=== PATIENT | female | born 1975 | race Caucasian/White ===

== ENCOUNTER 2016-10-29 21:25 | Emergency (ER) | payer SELFPAY ==
[2016-10-29] MEDS ORDERED: Sodium Chloride 0.9% 1,000 ML IV ONE (22:17)
[2016-10-29] MEDS ORDERED: Sodium Chloride 0.9% 1,000 ML ONE (22:22)
[2016-10-29 22:39] LABS: BASO % 0.4 % (0.0-2.0); EOS # 0.1 K/uL (0.0-0.7); EOS % 1.6 % (0.0-4.0); HEMATOCRIT 36.7 % (34.0-47.0); LYMPH # 2.5 K/uL (1.0-4.3); LYMPH % 38.3 % (20.0-40.0); MEAN CELL VOLUME 88.5 fL (81.0-99.0); MEAN CORPUSCULAR HEMOGLOBIN 29.5 pg (27.0-31.0); MEAN CORPUSCULAR HGB CONC 33.3 g/dL (33.0-37.0); MEAN PLATELET VOLUME 8.7 fL (7.2-11.7); MONO # 0.6 K/uL (0.0-0.8); MONO % 9.9 % (0.0-10.0); RED CELL DISTRIBUTION WIDTH 13.3 % (11.5-14.5); WHITE BLOOD COUNT 6.4 K/uL (4.8-10.8)
[2016-10-29 22:49] LABS: CHLORIDE 101 mmol/L (98-107)
[2016-10-29 22:50] LABS: POTASSIUM 3.5 mmol/L (3.6-5.2); SODIUM 137 mmol/L (132-148)
[2016-10-29 22:52] LABS: ALB/GLOB RATIO 1.3 (1.0-2.1); ALKALINE PHOSPHATASE 102 U/L (38-126); ALT/SGPT 30 U/L (9-52); AST/SGOT 23 U/L (14-36); BILIRUBIN,TOTAL 0.4 mg/dL (0.2-1.3); BLOOD UREA NITROGEN 8 mg/dL (7-17); CARBON DIOXIDE 27 mmol/L (22-30); GFR AFRICAN-AMERICAN > 60; GLUCOSE,RANDOM 117 mg/dL (65-105); TOTAL PROTEIN 6.8 g/dL (6.3-8.3)
[2016-10-29 22:53] LABS: CALCIUM 8.6 mg/dl (8.6-10.4)
[2016-10-29 23:00] LABS: RBC URINE < 1 /hpf (0-3); TRANSITIONAL EPITHIAL < 1 /hpf (0-3); URINE BACTERIA RARE (<OCC); URINE BILIRUBIN NEGATIVE (NEGATIVE); URINE BLOOD NEGATIVE (NEGATIVE); URINE COLOR Yellow (YELLOW); URINE GLUCOSE (UA) NORMAL (Normal); URINE KETONE NEGATIVE (NEGATIVE); URINE PROTEIN NEGATIVE (NEGATIVE); URINE UROBILINOGEN NORMAL mg/dL (0.2-1.0); WBC URINE 2 /hpf (0-5)
[2016-10-29 23:01] LABS: URINE LEUKOCYTE ESTERASE NEGATIVE Leu/uL (Negative)
--- NOTE | 2016-10-29 23:17 | C.PDOC ---
History Of Present Illness 41 year old patient presents to the ED complaining of cramping abdominal pain and nausea since yesterday. She reports the pain is primarily inferior to the umbilicus and is non-radiating. She denies pain being associated with food intake. She also denies vomiting, diarrhea, dysuria/hematuria, vaginal bleeding/ discharge. Time Seen by Provider: 10/29/16 22:01 Chief Complaint (Nursing): Abdominal Pain History Per: Patient History/Exam Limitations: no limitations Onset/Duration Of Symptoms: Days (yesterday) Current Symptoms Are (Timing): Still Present Severity: Mild Location Of Pain/Discomfort: Other (inferior to umbilicus) Radiation Of Pain To:: None Quality Of Discomfort: "Pain" Associated Symptoms: Nausea Abnormal Vaginal Bleeding: No Past Medical History Reviewed: Historical Data, Nursing Documentation, Vital Signs Vital Signs: Last Vital Signs Temp 97.8 F 10/30/16 00:20 Pulse 60 10/30/16 00:20 Resp 20 10/30/16 00:20 BP 121/60 10/30/16 00:20 Pulse Ox 100 10/30/16 00:20 - Medical History PMH: No Chronic Diseases - [facility] Procedures CLOSURE SKIN & SUBCUTANEOUS NEC (01/23/14) Family History: States: No Known Family Hx - Social History Hx Tobacco Use: No Hx Alcohol Use: No Hx Substance Use: No - Immunization History Hx Influenza Vaccination: No Hx Pneumococcal Vaccination: No Review Of Systems Except As Marked, All Systems Reviewed And Found Negative. Constitutional: Negative for: Fever, Chills Cardiovascular: Negative for: Chest Pain Respiratory: Negative for: Cough, Shortness of Breath Gastrointestinal: Positive for: Nausea, Abdominal Pain. Negative for: Vomiting , Diarrhea Genitourinary: Negative for: Dysuria, Hematuria, Vaginal Discharge, Vaginal Bleeding Physical Exam - Physical Exam Appears: Well, Non-toxic, No Acute Distress Skin: Warm, Dry Head: Normacephalic Oral Mucosa: Moist Neck: Supple Cardiovascular: Rhythm Regular Respiratory: Normal Breath Sounds, No Rales, No Rhonchi, No Wheezing Gastrointestinal/Abdominal: Bowel Sounds, Soft, Tenderness (mild TTP immediately inferior to umbilicus t), No Distention, No Guarding, No Rebound, No Other ((-) Munoz's, (-) McBurney's) Back: Normal Inspection, No CVA Tenderness Extremity: Normal ROM Neurological/Psych: Oriented x3 Gait: Steady ED Course And Treatment - Laboratory Results Result Diagrams: 10/29/16 22:35 10/29/16 22:35 O2 Sat by Pulse Oximetry: 99 (room air) Pulse Ox Interpretation: Normal Progress Note: Blood work, UA, Upreg ordered and reviewed. Patient given IV NS bolus - did not want pain medication. Reevaluation Time: 00:05 Reassessment Condition: Improved (Patient reassessed, is resting comfortably, has no current pain. On exam, abdomen is soft and nontender. Blood work, UA, Upreg unremarkable. Patient is well appearing, with normal vitals, and is comfortable being discharged home. She was given Rx for bentyl and instructed to follow up with PMD/clinic in 1-2 days. She understands she should return to ED immediately if symptoms return/worsen.) Disposition Counseled Patient/Family Regarding: Studies Performed, Diagnosis, Need For Followup, Rx Given - Disposition Referrals: [facility] [Outside] Disposition: HOME/ ROUTINE Disposition Time: 00:05 Condition: GOOD Additional Instructions: SEGUIMIENTO CON TAPIA DOCTOR / CLNICA EN 1-2 BLOOM BEBIDA DE FLUIDOS BILLY USE LOS MEDICAMENTOS QUE MARYSOL NECESARIOS DEVUELVA A LA CARLEE DE EMERGENCIA SI LOS SNTOMAS EMPEORARAN Prescriptions: Dicyclomine [Bentyl] 20 mg PO Q6 PRN #12 tab PRN Reason: ABDOMINAL CRAMPING Forms: General Discharge Instructions Print Language: SAMI - POA Present On Arrival: None - Clinical Impression Clinical Impression: Intestinal cramps - Scribe Statement The provider has reviewed the documentation as recorded by the Pedro Silva Provider Attestation: All medical record entries made by the Scribe were at my direction and personally dictated by me. I have reviewed the chart and agree that the record accurately reflects my personal performance of the history, physical exam, medical decision making, and the department course for this patient. I have also personally directed, reviewed, and agree with the discharge instructions and disposition.
[2016-10-30 00:21] VITALS: BP 121/60; PULSE 60; RESP 20; TEMP 97.8
[2016-11-02 18:22] VITALS: O2SAT 99
== END 2016-10-30 00:21 | disposition home or self-care (01) ==
LOC: C.ER 21:25
DX: R10.33 Periumbilical pain (principal)

== ENCOUNTER 2018-02-11 16:18 | Emergency (ER) | payer OTHER ==
[2018-02-11 16:23] VITALS: BP 132/88; PULSE 77; RESP 18; TEMP 98.3; O2SAT 99
--- NOTE | 2018-02-11 17:08 | C.PDOC ---
History Of Present Illness 42 year old female presents to ED for evaluation of throat discomfort when eating solid foods for the last 3 weeks. Patient reports she feels something is stuck in her throat when swallowing. Denies fever, cough, runny nose, SOB, abdomen pain, nausea, and vomiting. Time Seen by Provider: 02/11/18 16:23 Chief Complaint (Nursing): ENT Problem History Per: Patient History/Exam Limitations: None Onset/Duration Of Symptoms: Days Current Symptoms Are (Timing): Still Present Past Medical History Reviewed: Historical Data, Nursing Documentation, Vital Signs Vital Signs: Last Vital Signs Temp 98.3 F 02/11/18 16:20 Pulse 77 02/11/18 16:20 Resp 18 02/11/18 17:14 BP 132/88 02/11/18 16:20 Pulse Ox 99 02/11/18 19:36 - [facility] Procedures CLOSURE SKIN & SUBCUTANEOUS NEC (01/23/14) Family History: States: Unknown Family Hx - Social History Hx Tobacco Use: No Hx Alcohol Use: No Hx Substance Use: No - Immunization History Hx Tetanus Toxoid Vaccination: No Hx Influenza Vaccination: No Hx Pneumococcal Vaccination: No Review Of Systems Constitutional: Negative for: Fever, Chills ENT: Positive for: Other (throat discomfort). Negative for: Nose Discharge Respiratory: Negative for: Cough, Shortness of Breath Gastrointestinal: Negative for: Nausea, Vomiting, Abdominal Pain Physical Exam - Physical Exam Appears: Non-toxic, No Acute Distress, Other (Comfortable. Speaking full sentences. ) Skin: Normal Color, Warm, Dry Head: Atraumatic, Normacephalic Throat: Normal, No Erythema, No Exudate, Other (No tonsil swelling. ) Neck: Normal ROM, Supple, Other (No lymphadenopathy. No thyromegaly. ) Chest: Symmetrical, No Tenderness Cardiovascular: Rhythm Regular, No Murmur Respiratory: Normal Breath Sounds, No Accessory Muscle Use, No Rales, No Rhonchi , No Wheezing Neurological/Psych: Oriented x3, Normal Speech Gait: Steady ED Course And Treatment O2 Sat by Pulse Oximetry: 99 (RA) Pulse Ox Interpretation: Normal - Other Rad Neck Soft Tissue X-Ray: Viewed By Me, Read By Radiologist Interpretation: Findings: Soft tissues appear unremarkable. Airway appears clear. Mild degenerative changes of the cervical spine. No evidence of radiopaque foreign body. Lung apices appear clear. Impression: Unremarkable study as above. Progress Note: Soft Tissue Neck X-ray ordered. X-ray viewed by me. Patient stable for discharge home. Prescribed Protonix. Advised to follow up with gastrointestinal specialist. Disposition Counseled Patient/Family Regarding: Studies Performed, Diagnosis, Need For Followup, Rx Given - Disposition Referrals: [facility] [Outside] Gage Wells [Staff Provider] - Disposition: HOME/ ROUTINE Disposition Time: 17:10 Condition: STABLE Additional Instructions: FOLLOW UP WITH MORTGAGE LOAN CLOSER WITHIN 1 WEEK USE MEDICATION DAILY RETURN TO EMERGENCY ROOOM IF SYMPTOMS WORSEN SEGUIMIENTO CON GASTROENTERLOGO DENTRO DE 1 SEMANA USE MEDICAMENTOS DIARIAMENTE VUELVA AL EMPLAZAMIENTO DE EMERGENCIA SI LOS SNTOMAS EMPEORAN Prescriptions: Pantoprazole [Protonix EC Tab] 20 mg PO DAILY #30 ect Instructions: Dysphagia (DC) Forms: [employer] (Ukrainian) Print Language: BENGALI - Clinical Impression Clinical Impression: Dysphagia, Throat discomfort - PA / SAIL CUTTER / Resident Statement MD/DO has reviewed & agrees with the documentation as recorded. - Scribe Statement The provider has reviewed the documentation as recorded by the Scribe (Mabel Lopez) Provider Attestation: All medical record entries made by the Scribe were at my direction and personally dictated by me. I have reviewed the chart and agree that the record accurately reflects my personal performance of the history, physical exam, medical decision making, and the department course for this patient. I have also personally directed, reviewed, and agree with the discharge instructions and disposition.
--- NOTE | 2018-02-11 17:27 | RAD ---
Date of service: 02/11/18 Neck soft tissue radiographs Indication: Throat discomfort Comparison: None available Findings: Soft tissues appear unremarkable. Airway appears clear. Mild degenerative changes of the cervical spine. No evidence of radiopaque foreign body. Lung apices appear clear. Impression: Unremarkable study as above.
== END 2018-02-11 17:15 | disposition home or self-care (01) ==
LOC: C.ER 16:18
DX: R13.10 Dysphagia, unspecified (principal); J39.2 Other diseases of pharynx

== ENCOUNTER 2018-04-07 13:54 | Emergency (ER) | payer OTHER ==
[2018-04-07 14:26] VITALS: BMI 30.9
--- NOTE | 2018-04-07 14:58 | C.PDOC ---
History Of Present Illness 42 y/o female with no PMHx, presents to the ED complaining of left-sided chest pain since 9:00am today. No fevers or chills. Patient cannot characterize the pain. Reports associated subjective dyspnea. She denies any cough, congestion, numbness, tingling, extremity weakness, palpitations, or radiation of pain. Time Seen by Provider: 04/07/18 14:35 Chief Complaint (Nursing): Dizziness/Lightheaded History Per: Patient History/Exam Limitations: no limitations Onset/Duration Of Symptoms: Hrs Current Symptoms Are (Timing): Still Present Past Medical History Reviewed: Historical Data, Nursing Documentation, Vital Signs Vital Signs: Last Vital Signs Temp 99.4 F 04/07/18 14:38 Pulse 78 04/07/18 14:38 Resp 17 04/07/18 14:38 BP 125/76 04/07/18 14:38 Pulse Ox 98 04/07/18 14:38 - Medical History PMH: No Chronic Diseases Surgical History: No Surg Hx - [facility] Procedures CLOSURE SKIN & SUBCUTANEOUS NEC (01/23/14) Family History: States: Unknown Family Hx - Social History Hx Tobacco Use: No Hx Alcohol Use: No Hx Substance Use: No - Immunization History Hx Tetanus Toxoid Vaccination: No Hx Influenza Vaccination: Yes (02/2018) Hx Pneumococcal Vaccination: No Review Of Systems Except As Marked, All Systems Reviewed And Found Negative. Constitutional: Negative for: Fever, Chills Cardiovascular: Positive for: Chest Pain. Negative for: Palpitations Respiratory: Positive for: Shortness of Breath. Negative for: Cough, Hemoptysis, Sputum Gastrointestinal: Negative for: Nausea, Vomiting, Diarrhea Neurological: Negative for: Weakness, Numbness, Incoordination, Dizziness Physical Exam - Physical Exam Appears: Non-toxic, No Acute Distress Skin: Warm, Dry Head: Atraumatic, Normacephalic Eye(s): bilateral: Normal Inspection, PERRL, EOMI Oral Mucosa: Moist Neck: Normal ROM Chest: Symmetrical, No Deformity, No Tenderness Cardiovascular: Rhythm Regular, No Murmur Respiratory: Normal Breath Sounds, No Rales, No Rhonchi, No Wheezing Gastrointestinal/Abdominal: Soft, No Tenderness, No Distention Extremity: Bilateral: Atraumatic, Normal Color And Temperature, Normal ROM Pulses: Left Dorsalis Pedis: Normal, Right Dorsalis Pedis: Normal Neurological/Psych: Oriented x3, Normal Speech ED Course And Treatment - Laboratory Results Result Diagrams: 04/07/18 15:27 04/07/18 15:27 ECG: Interpreted By Me, Viewed By Me ECG Rhythm: Sinus Rhythm Interpretation Of ECG: no ST or T wave changes Rate From EC O2 Sat by Pulse Oximetry: 98 (RA) Pulse Ox Interpretation: Normal - Radiology CXR: Read By Radiologist CXR Interpretation: Yes: No Acute Disease Medical Decision Making Medical Decision Making: Impression: Left-sided chest pain, subjective dyspnea, PERC negative. Plan: --Blood work with cardiac enzymes --UA --Chest x-ray --EKG --Reassess CXR negative. Labs reviewed, trop negative. 16:25 Discussed results w/ patient. Recommend patient stay in the ER for repeat trop as pain began at 9:00am today. Patient declines to stay in the ER, asking for discharge. Discussed with event sales assistant to ensure patients understanding. Patient will follow up outpatient. info all obtained via event sales assistant and medical residen.t Disposition - Disposition Referrals: [facility] [Outside] [facility] [Outside] Jhonny Sim MD [Staff Provider] - Disposition: HOME/ ROUTINE Disposition Time: 16:40 Condition: STABLE Additional Instructions: you are declining repeat lab tesitng in the er. you are able to return to er with worsening symptom or concerns. please follow up with specialist. Prescriptions: Cefpodoxime [Vantin] 100 mg PO BID #20 tab Instructions: Urinary Tract Infections in Adults, Chest Pain Forms: [facility] (Maori) Print Language: CZECH - Clinical Impression Clinical Impression: Chest pain - Scribe Statement The provider has reviewed the documentation as recorded by the Pedro Mckinney Provider Attestation: All medical record entries made by the Sandraibjennifer were at my direction and personally dictated by me. I have reviewed the chart and agree that the record accurately reflects my personal performance of the history, physical exam, medical decision making, and the department course for this patient. I have also personally directed, reviewed, and agree with the discharge instructions and disposition.
[2018-04-07 15:38] LABS: BASO % 0.5 % (0.0-2.0); EOS # 0.1 K/uL (0.0-0.7); EOS % 1.3 % (0.0-4.0); HEMOGLOBIN 13.1 g/dL (11.0-16.0); LYMPH # 2.3 K/uL (1.0-4.3); LYMPH % 26.7 % (20.0-40.0); MEAN CELL VOLUME 88.7 fL (81.0-99.0); MEAN CORPUSCULAR HEMOGLOBIN 30.1 pg (27.0-31.0); MEAN CORPUSCULAR HGB CONC 33.9 g/dL (33.0-37.0); MONO # 0.6 K/uL (0.0-0.8); NEUT # 5.6 K/uL (1.8-7.0); NEUT % 64.5 % (50.0-75.0); RBC 4.36 Mil/uL (3.80-5.20); RED CELL DISTRIBUTION WIDTH 13.8 % (11.5-14.5); WHITE BLOOD COUNT 8.8 K/uL (4.8-10.8)
--- NOTE | 2018-04-07 15:40 | RAD ---
Date of service: 04/07/2018 HISTORY: chest pain COMPARISON: No prior. TECHNIQUE: Chest PA and lateral FINDINGS: LUNGS: No active pulmonary disease. PLEURA: No significant pleural effusion identified. No pneumothorax apparent. CARDIOVASCULAR: Suspect minimal aortic atherosclerotic calcification present. Normal cardiac size. No pulmonary vascular congestion. OSSEOUS STRUCTURES: No significant abnormalities. VISUALIZED UPPER ABDOMEN: Normal. OTHER FINDINGS: None. IMPRESSION: No active disease.
[2018-04-07 15:47] LABS: HCG,QUALITATIVE URINE NEGATIVE (NEGATIVE); PROTHROMBIN TIME 11.2 SECONDS (9.7-12.2)
[2018-04-07 15:52] LABS: SQUAMOUS EPITHIAL 3 /hpf (0-5); URINE BILIRUBIN NEGATIVE (NEGATIVE); URINE BLOOD NEGATIVE (NEGATIVE); URINE CLARITY Clear (Clear); URINE COLOR Yellow (YELLOW); URINE GLUCOSE (UA) NORMAL (Normal); URINE LEUKOCYTE ESTERASE 3+ Leu/uL (Negative); URINE PROTEIN NEGATIVE (NEGATIVE); URINE UROBILINOGEN NORMAL mg/dL (0.2-1.0)
[2018-04-07 15:55] LABS: ALB/GLOB RATIO 1.4 (1.0-2.1); ALBUMIN 4.4 g/dL (3.5-5.0); ALT/SGPT 33 U/L (9-52); AST/SGOT 35 U/L (14-36); BLOOD UREA NITROGEN 10 mg/dL (7-17); CALCIUM 9.3 mg/dl (8.6-10.4); GFR NON-AFRICAN AMERICAN > 60
[2018-04-07 16:08] LABS: B-TYPE NATRIURETIC PEPTIDE 40.1 pg/mL (0-450)
[2018-04-07 16:40] VITALS: BP 119/72; PULSE 69; RESP 16; TEMP 99.1
--- NOTE | 2018-04-08 12:24 | CARD ---
APPROVED REPORT Date of service: 04/07/2018 EKG Measurement Heart [id number] <Conclusion> Normal sinus rhythm Normal ECG
[2018-04-10 07:51] VITALS: O2SAT 98
== END 2018-04-07 16:58 | disposition home or self-care (01) ==
LOC: C.ER 13:54
DX: R07.9 Chest pain, unspecified (principal)